=== PATIENT | male | born 1985 | race Caucasian/White ===

== ENCOUNTER 2017-03-21 18:31 | Emergency (ER) | payer OTHER ==
[2017-03-21] MEDS ORDERED: Ondansetron INJ* 2 MG/ML VIAL IV ONE ×2 (19:40→20:54)
[2017-03-21] MEDS ORDERED: Morphine INJ* 4 MG/ML 1 ML CARPUJECT IV ONE (19:40)
[2017-03-21] MEDS ORDERED: NS 0.9% 1000 ML* 1,000 ML IV SCH (19:45)
--- NOTE | 2017-03-21 20:14 | RAD ---
INDICATION: Left shoulder pain. TECHNIQUE: 4 views of the left shoulder were obtained. FINDINGS: The humeral head is subluxed inferior relative to the glenoid process of the scapula. No fracture is seen. IMPRESSION: INFERIOR SUBLUXATION OF THE HUMERUS.
[2017-03-21] MEDS ORDERED: Naloxone* 0.4 MG/ML 10 ML VIAL ONE (21:07)
[2017-03-21] MEDS ORDERED: Midazolam* 1 MG/ML 10 ML VIAL (10 MG) ONE (21:07)
[2017-03-21] MEDS ORDERED: Flumazenil* 0.1 MG/ML 5 ML MDV ONE (21:07)
[2017-03-21] MEDS: fentaNYL* 50 MCG/ML 2 ML VIAL (100 MCG VIAL) IV SLOW PU ONE ×4 (21:16→22:10)
[2017-03-21] MEDS ORDERED: Midazolam* 1 MG/ML 10 ML VIAL (10 MG) IV ONE (21:58)
[2017-03-21] MEDS ORDERED: fentaNYL* 50 MCG/ML 2 ML VIAL (100 MCG VIAL) ONE (22:06)
[2017-03-21] MEDS ORDERED: HYDROmorphone INJ* 1 MG/ML CARPUJECT SYRINGE IV ONE ×2 (22:17→22:42)
[2017-03-21] MEDS ORDERED: Propofol* 500 MG/50 ML BTL ONE (23:06)
[2017-03-21] MEDS ORDERED: Midazolam concentrated* 5 MG/ML 1 ml VIAL ONE (23:25)
[2017-03-22] MEDS ORDERED: ALPRAZolam TAB* 0.25 MG PO ONE (00:24)
[2017-03-22 03:59] VITALS: BP 122/66
--- NOTE | 2017-03-22 06:35 | RAD ---
INDICATION: Dislocated left shoulder post reduction COMPARISON: Left shoulder radiograph acquired at 1958 hours TECHNIQUE: 4 views of the left shoulder were obtained. FINDINGS: The adequately corticated bones are in normal alignment. Joint spaces appear maintained. No fracture, dislocation or focal bony abnormality is seen. IMPRESSION: INTERVAL REDUCTION OF PREVIOUSLY DISLOCATED LEFT SHOULDER WITHOUT OTHER RADIOGRAPHICALLY APPARENT ABNORMALITY. If the patient's symptoms persist, follow-up imaging is recommended.
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
--- NOTE | 2017-03-22 16:43 | OP ---
DATE OF OPERATION: 03/22/17 DATE OF : 03/21/17 SURGEON: Jossue Morin MD MANAGER INDUSTRIAL: None. ANESTHESIOLOGIST: Dr. Hernandez. ANESTHESIA: Conscious sedation with propofol. PRE-OP DIAGNOSIS: High grade left glenohumeral inferior subluxation and potential dislocation. POST-OP DIAGNOSIS: High grade left glenohumeral inferior subluxation and potential dislocation. OPERATIVE PROCEDURE: Closed reduction under conscious sedation in the emergency room of the left glenohumeral joint. INDICATIONS: Zay has chronic instability. His most recent event was the third event on the left shoulder. He has on the right shoulder as well. He was just reaching for an object earlier today when he felt the shoulder go out. He came to the emergency room where imaging showed very high grade inferior subluxation. I told them that this likely represents high grade laxity in the shoulder and ultimately to fix the problem will require surgical intervention. He is very uncomfortable and wonders if we can put the shoulder in a little bit better position, so I told him that I would do that. We talked about risks and benefits, he want to proceed. ESTIMATED BLOOD LOSS: None. COMPLICATIONS: None. FINDINGS: As expected. DESCRIPTION OF PROCEDURE: Zay was seen in the emergency room and he had a time- out. He then got some conscious sedation with propofol by Dr. Hernandez. Once he was nicely relaxed, we went ahead and took the arm and placed in the position of external rotation and abduction. I then while holding posteriorly directed force on the humeral head applied a little traction to the elbow and brought him down into position of adduction and internal rotation. The shoulder seemed to be in very nice position. I got some x-rays including AP and axillary lateral. Everything looked very nicely aligned. He was placed in a shoulder immobilizer. We got some x-rays which confirmed the reduction of the joint. He was then woken back up. POSTPROCEDURE PLAN: Zay will be discharged back to the halfway system in the shoulder immobilizer. Ultimately he is probably going to require surgical intervention. I told him to have him follow up Dr. Pinon who does shoulder instability surgery. [id number]/[facility] #: [id number] [facility]
== END 2017-03-22 01:10 | disposition home or self-care (01) ==
LOC: ED 18:31
DX: M24.412 Recurrent dislocation, left shoulder (principal)
CPT/HCPCS: 99285; A9270-GY; J1170; J2250; J2270; J2310; J2405; J2704; J3010

== ENCOUNTER 2017-03-23 13:30 | Emergency (ER) | payer OTHER ==
[2017-03-23] MEDS ORDERED: HYDROmorphone INJ* 1 MG/ML CARPUJECT SYRINGE IV SLOW PU ONE ×2 (15:09→16:20)
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
[2017-03-23] MEDS ORDERED: Diazepam SYRINGE* 5 MG/ML SYRINGE IV ONE (15:47)
--- NOTE | 2017-03-23 16:53 | RAD ---
INDICATION: Left shoulder injury. COMPARISON: Comparison is made with prior x-ray studies from March 21, 2017 and an outside study from March 23, 2017. TECHNIQUE: 4 views of the left shoulder were obtained. FINDINGS: There is inferior subluxation of the humerus similar to the initial images from March 21, 2017 and unchanged from the recent outside exam earlier today. No fracture is seen. IMPRESSION: INFERIOR SUBLUXATION OF THE HUMERUS.
[2017-03-23] MEDS ORDERED: ALPRAZolam TAB* 0.5 MG PO ONE (17:28)
[2017-03-23 17:44] VITALS: BP 126/46
== END 2017-03-23 17:46 | disposition home or self-care (01) ==
LOC: ED 13:30
DX: S43.005A Unspecified dislocation of left shoulder joint, initial encounter (principal); W19.XXXA Unspecified fall, initial encounter; Y93.E1 Activity, personal bathing and showering; Y92.149 Unspecified place in prison as the place of occurrence of the external cause
CPT/HCPCS: 96374; 96375; 99282; A9270-GY; J1170; J3360

== ENCOUNTER 2017-09-21 17:45 | Emergency (ER) | payer OTHER ==
--- NOTE | 2017-09-21 18:36 | RAD ---
INDICATION: Right shoulder injury COMPARISON: None. TECHNIQUE: 4 views of the right shoulder were obtained. FINDINGS: The right humeral head appears to be displaced inferiorly relative to the bony glenoid labrum. The visualized bones are otherwise intact without visible fracture identified. IMPRESSION: THE RIGHT HUMERAL HEAD APPEARS TO BE DISPLACED INFERIORLY RELATIVE TO THE BONY GLENOID LABRUM. PLEASE CORRELATE TO PHYSICAL EXAMINATION.
[2017-09-21] MEDS ORDERED: Morphine INJ* 4 MG/ML 1 ML SYRINGE (NEW SYRINGE VERSION) IM ONE (19:45)
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
[2017-09-21] MEDS ORDERED: Midazolam* 1 MG/ML 5 ML VIAL (5 MG) SLOW PUSH ONE (20:28)
[2017-09-21] MEDS ORDERED: Propofol* 10 MG/ML 20 ML BTL IV PUSH ONE (20:32)
[2017-09-21] MEDS ORDERED: Propofol* 500 MG/50 ML BTL ONE (20:47)
[2017-09-21] MEDS ORDERED: Morphine INJ* 4 MG/ML 1 ML CARPUJECT IV ONE ×2 (21:52→22:00)
[2017-09-21] MEDS ORDERED: Morphine INJ* 4 MG/ML 1 ML SYRINGE (NEW SYRINGE VERSION) ONE (21:57)
[2017-09-21] MEDS ORDERED: Morphine INJ* 4 MG/ML 1 ML SYRINGE (NEW SYRINGE VERSION) IV ONE (22:15)
--- NOTE | 2017-09-21 22:27 | RAD ---
INDICATION: Shoulder reduction COMPARISON: Same day radiograph of the right shoulder acquired at 1813 hours TECHNIQUE: A single AP view of the shoulder was obtained. FINDINGS: In the AP view the glenohumeral joint continues to appear to be dislocated inferiorly relative to the bony glenoid labrum. IMPRESSION: IN THE AP VIEW THE HUMERAL HEAD CONTINUES TO APPEAR TO BE DISLOCATED INFERIORLY RELATIVE TO THE BONY GLENOID LABRUM. PLEASE CORRELATE TO THE PATIENT'S PHYSICAL EXAM FINDINGS.
[2017-09-21] MEDS ORDERED: ALPRAZolam TAB* 0.5 MG PO ONE (23:22)
[2017-09-21] MEDS ORDERED: Ibuprofen TAB* 600 MG PO ONE (23:22)
--- NOTE | 2017-09-22 00:01 | PN ---
Progress Note - Progress Note Date of Service: 09/21/17 Note: Discussed CT results with alan Underwood. Shoulder is successfully reduced. Patient is placed in a swath, given ibuprofen 600 mg and given his alprazolam which is his normal nightly medication. He will follow-up with Dr. Aguero in [address] Anthony to successfully reduce shoulder my help. Patient is feeling much improved since reduction. Vital signs are stable. Condition: Good Disposition: Home
[2017-09-22 00:41] VITALS: BP 107/67
--- NOTE | 2017-09-22 03:04 | ED ---
Progress - Progress Note Progress Note: I supervised care of PAs and performed hx and physical exam on this patient. Hx: R shoulder dislocation while in retirement, hx of similar in L shoulder. Pain. PE: squared off R shoulder with decreased deltoid sensation. Ext is otherwise neurovasc intact. Plan: Reduction of dislocation/subluxation. I sedated and reduced shoulder x 2. consult 1: Anesthesia, Dr. Fernández -- consult for assistance with procedural sedation. Instructed to perform sedation (for which I am trained) myself. consult 2: Dr Bell, Ortho -- discussed procedure, results and persistent pt discomfort and re- subluxation. Wanted CT scan which shows only minor subluxation, no dislocation. Procedures: 1. Procedural sedation. Pt consented and plan for propofol sedation. ETCO2 placed and NC O2 placed orally. MP 1 airway. ASA1. Paperwork completed. Gave 100mg IVP propofol followed by remainder (40mg) for total 140mg IV dose ( 1.5mg/kg). This produced adequate relaxation without loss of respiratory drive. Pt quickly recovered without complication. Total procedure time is 2min. Tolerated well without complication. 2. Closed reduction of R shoulder dislocation/subluxation. Pt consented. He was sedated as above and counter traction applied while R shoulder was externally rotated and and rotated above the head. Though no audible click was heard, the shoulder regained normal alignment and had full, fluid range of motion. While sling/swathe was being applied, anterior subluxation could be felt. Pt aroused with persistent shoulder discomfort. A post procedure xray indicates persistent subluxation. Eli well, no complications other than persistent sx. 3. 2nd Procedural Sedation. Pt again consented and agreed to again be sedated. ETCO2 and O2 placed. MP1 airway, ASA 1. Gave 140mg Propofol IVP. Prompt relaxation without loss of resp drive. Pt quickly recovered without complication. Total procedure time again was 2min. Eli well without complication. 4. 2nd closed reduction of R shoulder dislocation/subluxation. Pt again consented and agreed. Again countertraction applied and same ext rotation and raising arm reduced shoulder. Full smooth ROM achieved. No deformity. Pt placed in sling/swathe. Again he awoke with complaint of persistent discomfort though no significant deformity was appreciated. Eli well , no complication. CT scan showed mild persistent subluxation. D/W Ortho who wishes for discharge with prompt f.u. with him. Course/Dx - Diagnoses Provider Diagnoses: Shoulder dislocation Discharge - Sign-Out/Discharge Documenting (check all that apply): Discharge - Discharge Plan Condition: Stable Disposition: HOME Patient Education Materials: Shoulder Dislocation (ED) Referrals: Corona Hernandez MD [Medical Doctor] - [facility], [Primary Care Provider] - Additional Instructions: Please follow-up with Dr. Aguero I have given you a referral Ibuprofen 600 mg 3 times daily You may continue your at home medication as prescribed Keep the swath applied at all times - Billing Disposition and Condition Condition: STABLE Disposition: HOME
--- NOTE | 2017-09-22 07:54 | RAD ---
INDICATION: Recurrent shoulder dislocations. COMPARISON: Right shoulder September 13, 2017 TECHNIQUE: Axial scans the shoulder were obtained with coronal and sagittal reconstructions. FINDINGS: There is mild posterior and inferior subluxation at the glenohumeral joint consistent with a history of chronic shoulder dislocations. This suggests ligamentous laxity. MR imaging as appropriate study if further evaluation is required. There is no acute bony change. The soft tissue elements about the shoulder are normal. Visualized right lung apex is normal. IMPRESSION: MILD POSTERIOR AND INFERIOR SUBLUXATION OF THE GLENOHUMERAL JOINT.
== END 2017-09-22 00:45 | disposition home or self-care (01) ==
LOC: ED 17:45
DX: S43.084A Other dislocation of right shoulder joint, initial encounter (principal); X50.0XXA Overexertion from strenuous movement or load, initial encounter; Y92.149 Unspecified place in prison as the place of occurrence of the external cause
CPT/HCPCS: 23650; 96374; 96375; 99285; A9270-GY; J2270; J2704